=== PATIENT | female | born 1995 | race Two or more races ===

== ENCOUNTER 2018-07-13 09:09 | Emergency (ER) | payer OTHER ==
[~2018-07-13] VITALS: Ht 157.5 cm; Wt 88.9 kg
[2018-07-13] MEDS ORDERED: ZANTAC150 MG PO (13:14)
[2018-07-13] MEDS ORDERED: INTESTINEX680 M1 PO (13:14)
[2018-07-13] MEDS ORDERED: FLAGYL500MG PO (13:14)
[2018-07-13] MEDS ORDERED: CIPRO500 MG PO (13:14)
== END 2018-07-13 16:05 | disposition home or self-care (01) ==
LOC: ER 09:09
DX: R19.7 Diarrhea, unspecified (principal); R07.89 Other chest pain

== ENCOUNTER 2019-05-26 17:36 | Emergency (ER) | payer OTHER ==
[~2019-05-26] VITALS: Ht 160 cm; Wt 90.7 kg
[~2019-05-26 17:36] MED LIST: CIPRO500 MG PO; FLAGYL500MG PO; INTESTINEX680 M1 PO; ZANTAC150 MG PO
== END 2019-05-26 20:17 | disposition home or self-care (01) ==
LOC: ER 17:36
DX: N93.8 Other specified abnormal uterine and vaginal bleeding (principal)

== ENCOUNTER 2025-08-03 13:14 | Inpatient (IN) | payer OTHER ==
[~2025-08-03] VITALS: Ht 160 cm; Wt 90.7 kg
--- NOTE | 2025-08-03 13:37 | NUR ---
PACIENTE ALERTA Y ORIENTADA X3 REFIERE DOLOR EN EL INTERIOR DE LA PIERNA IZQUIERDA. EDEMATOSO Y CALIENTE AL TACTO. SE LE REALIZA EKG POR PRESION 150/100 MANUAL Y SE LE PRESENTA A LA LULU HOLM. SE MIDEN S/V Y SE UBICA EN ALEC DE4 ESPERA.
[2025-08-03] MEDS ORDERED: 0.9 % SODIUM CHLORIDE 1,000 ML IV ONE (15:00)
[2025-08-03] MEDS ORDERED: ACETAMINOPHEN 325 MG TABLET PO ONE (15:00)
[2025-08-03] MEDS ORDERED: ENOXAPARIN SODIUM 40 MG/0.4 ML SYRINGE SUBCUTANEO ONE ×2 (15:00→15:58)
[2025-08-03] MEDS ORDERED: ACETAMINOPHEN 500 MG GEL..CAP PO ONE (15:57)
[2025-08-03 16:43] LABS: BASO % 0.4 % (0.1-1.2); EOS # 0.17 (0.04-0.54); EOS % 2.2 % (0.7-7.0); LYMPH # 2.45 (1.18-3.74); LYMPH % 31.4 % (19.3-53.1); MEAN PLATELET VOLUME 10.10 fl (9.4-12.4); MONO # 0.59 (0.24-0.82); MONO % 7.6 % (4.7-12.5); NEUT # 4.54 (1.56-6.13); NEUT % 58.0 % (34.0-71.1); RED CELL DISTRIBUTION WIDTH 12.9 % (11.6-14.4)
[2025-08-03 16:54] LABS: ERYTHROCYTE SEDIMENTATION RATE 30 mm/hr (0-20)
[2025-08-03 17:04] LABS: INR 0.94
[2025-08-03 17:07] LABS: BUN CREA RATIO 15.0 (7.0-25.0); CREATININE SERUM 0.86 mg/dL (0.55-1.02); GFR 78.57; GLUCOSE FASTING 91.0 mg/dL (65-100); OSMOLALITY SERUM 283.0 MOSM/KG (275-295)
--- NOTE | 2025-08-03 17:16 | NUR ---
SE ORIENT A APTE SOBRE TX MEDICO LA MISMA REFIERE ENTENDER Y ACEPTAR. SE COLOCA H/L EN BRAZO DERECHO, SE RECOLECTAN MUESTRAS DE LAB Y SE ADMINISTRAN MEDICAMENTOS SONDRA ORDEN MEDICA BAJO MEDIDAS ASEPTICAS.
[2025-08-03] MEDS ORDERED: CEFAZOLIN SODIUM 1,000 MG VIAL IV ONE (19:30)
[2025-08-03] MEDS ORDERED: CEFAZOLIN SODIUM 1,000 MG VIAL ONE (20:28)
[2025-08-03] MEDS ORDERED: CEFTRIAXONE SODIUM 2,000 MG in 0.9 % SODIUM CHLORIDE 100 ML IV SCH (20:36)
[2025-08-03] MEDS ORDERED: ACETAMINOPHEN 325 MG TABLET PO PRN (20:45)
[2025-08-03] MEDS ORDERED: KETOROLAC TROMETHAMINE 30 MG VIAL IV PRN (20:45)
[2025-08-03] MEDS ORDERED: 0.9 % SODIUM CHLORIDE 1,000 ML IV SCH (20:45)
[2025-08-03] MEDS ORDERED: ENALAPRILAT DIHYDRATE 1.25 MG/ML VIAL IV PRN (21:00)
[2025-08-03] MEDS ORDERED: POTASSIUM CHLORIDE IN WATER 100 ML IV SCH (21:00)
[2025-08-03] MEDS ORDERED: CEFTRIAXONE SODIUM 2,000 MG VIAL ONE (21:48)
[2025-08-03] MEDS ORDERED: ENALAPRILAT DIHYDRATE 1.25 MG/ML VIAL IV ONE (22:33)
[2025-08-03 22:41] VITALS: BP 149/98; O2SAT 99
[2025-08-04 03:52] LABS: URINE APPEARANCE Cloudy; URINE BILIRRUBIN Negative (NEGATIVE); URINE BLOOD Negative; URINE COLOR Yellow; URINE GLUCOSE Negative (NEGATIVE); URINE KETONE Negative (NEGATIVE); URINE LEUKOCYTE Negative; URINE NITRATE Negative; URINE PROTEIN Trace (NEGATIVE); URINE UROBILINOGEN 0.2 E.U./dl
[2025-08-04 03:55] LABS: URINE BACTERIA 1681.2 uL (0.0-1933); URINE EPITHELIAL CELLS 24.9 uL (0.0-38.8); URINE RBC 7.1 uL (0.0-20.8); URINE WBC 18.1 uL (0.0-23.2)
[2025-08-04 04:18] LABS: URINE CAST 0.43 uL (0.0-1.40); URINE CRYSTALS MANY /HPF
[2025-08-04 09:11] VITALS: BP 137/90; O2SAT 100
[2025-08-04 12:03] LABS: ALT/SGPT 25.0 U/L (12-78); AST/SGOT 13.0 U/L (15-37); BILIRUBIN TOTAL 0.45 mg/dL (0.3-1.2); BUN CREA RATIO 12.0 (7.0-25.0); CREATININE SERUM 0.82 mg/dL (0.55-1.02); GFR 83.01; GLOBULINA 3.7 G/DL (2.4-3.5); GLUCOSE FASTING 105.0 mg/dL (65-100); OSMOLALITY SERUM 286.0 MOSM/KG (275-295)
[2025-08-04 18:06] VITALS: BP 120/81; O2SAT 97
[2025-08-05 01:12] VITALS: BP 132/85; O2SAT 98
[2025-08-05 09:49] VITALS: BP 126/85; O2SAT 98
[2025-08-05 17:32] VITALS: BP 145/85; O2SAT 98
== END 2025-08-05 22:03 | disposition home or self-care (01) | DRG 603 ==
LOC: ER 13:14 → MEDJ 21:35
PROVIDERS: General Practice; ADMIT Internal Medicine; ATTEND Internal Medicine
PROC: B54CZZZ Ultrasonography of Left Lower Extremity Veins (ICD-10-PCS; principal; 2025-08-03)
DX: L03.116 Cellulitis of left lower limb (principal); E87.6 Hypokalemia; I87.2 Venous insufficiency (chronic) (peripheral); A05.9 Bacterial foodborne intoxication, unspecified; N93.8 Other specified abnormal uterine and vaginal bleeding; K52.9 Noninfective gastroenteritis and colitis, unspecified